=== PATIENT | male | born 1995 | race Caucasian/White ===

== ENCOUNTER → 2019-04-13 | Outpatient (CLI) | payer OTHER ==
--- NOTE | 2019-04-13 14:56 | REPVR ---
PROCEDURE INFORMATION: Exam: MR Cervical Spine Without Contrast Exam date and time: 04/13/2019 1:44 PM Age: 23 years old Clinical indication: Pain; Cervicalgia TECHNIQUE: Imaging protocol: Multiplanar magnetic resonance images of the cervical spine without contrast. COMPARISON: No relevant prior studies available. FINDINGS: Vertebrae: The cervical vertebral bodies are normal height and alignment.No acute fracture or dislocation is seen. Spinal cord: There is no cord compression or intramedullary signal abnormality. Normal signal. The craniovertebral junction appears normal. Spinal epidural space: There is no evidence for epidural mass or hemorrhage. C2-C3: Unremarkable. No significant disc disease. No stenosis. C3-C4: Unremarkable. No significant disc disease. No stenosis. C4-C5: Unremarkable. No significant disc disease. No stenosis. C5-C6: Unremarkable. No significant disc disease. No stenosis. C6-C7: Unremarkable. No significant disc disease. No stenosis. C7-T1: Unremarkable. No significant disc disease. No stenosis. Other bones/joints: There is a normal proportion of hematopoietic bone marrow and fat for this patient's age.There is no evidence of abnormal bone marrow signal intensity to suggest contusion or infection. Vertebral arteries: Expected flow voids in the vertebral arteries. Soft tissues: The prevertebral soft tissues appear normal. Other findings: The study is limited due to motion artifact. IMPRESSION: Unremarkable MRI of the cervical spine.There is no significant degenerative disc herniation or spondylosis. The spinal canal and neural foramina are patent. Normal cervical spinal cord. Electronically signed by: John Zhou On 04/13/2019 14:56:31 PM
== END ==
LOC: M RAD 13:38
PROVIDERS: ATTEND Physician Assistant
DX: M54.2 Cervicalgia (principal)